=== PATIENT | female | born 1980 | race Caucasian/White ===

== ENCOUNTER → 2018-03-27 16:05 | Outpatient (CLI) | payer SELFPAY ==
[2018-03-27 20:33] LABS: Chlamydia Trachomatis by PCR Negative (Negative); Neisserai gonorrhoeae by PCR Negative (Negative); Probe Check PASS; Sample Adequacy Control PASS; Specimen Processing Control PASS
[2018-03-30 09:43] LABS: HPV Reflexed? NOT INDICATED
== END ==
PROVIDERS: Visit Provider Obstetrics & Gynecology
DX: Z34.81 Encounter for supervision of other normal pregnancy, first trimester (principal); Z12.4 Encounter for screening for malignant neoplasm of cervix; Z11.3 Encounter for screening for infections with a predominantly sexual mode of transmission
CPT/HCPCS: 87491; 87591; 88175; G0145

== ENCOUNTER → 2018-04-10 11:32 | Outpatient (CLI) | payer SELFPAY ==
[2018-04-10 13:56] LABS: Color, Urine Straw (Yellow); Glucose, Dipstick Normal (Normal); Ketone-Dipstick Negative (Negative); Leukocyte Esterase-Dipstick Negative /ul (Negative); Nitrite-Dipstick Negative (Negative); Occult Blood-Urine 10 /ul (Negative); Protein-Dipstick Negative (Negative); Specific Gravity, Urine 1.005 (1.002-1.030); Urine Bilirubin Dipstick Negative (Negative); Urine Clarity Sl. Cloudy (Clear); Urine Urobilinogen Normal (Normal)
[2018-04-10 15:46] LABS: Absolute Lymphocyte Count 1.65 X10^3/ul (0.83-4.51); Absolute Neutrophil Count 5.4 X10^3/uL (2.0-7.7); Basophil# 0.02 X10^3/uL; Basophil% 0.3 % (0-1); Eosinophil# 0.05 X10^3/uL; Eosinophils% 0.7 % (0-5); Hematocrit 37.6 % (37-47); Hemoglobin 12.3 g/dl (12.0-15.0); Lymphocyte # 1.65 X10^3/ul (4.0); Lymphocyte % 21.6 % (19-41); Mean Corp Hgb Conc 32.7 g/gl (32-36); Mean Corpuscular Hgb 32.6 pg (27.0-32.0); Mean Corpuscular Volume 99.7 fL (81-99); Mean Platelet Vol. 9.5 fl (6.2-12.0); Monocyte# 0.53 X10^3/uL; Monocyte% 6.9 % (0-10); Neutrophil # 5.37 X10^3/uL (2.7-7.7); Neutrophil % 70.2 % (47-70); Platelet Count 333 K/mm3 (150-450); RBC Distribution Width CV 12.9 % (11.6-14.6); RBC Distribution Width SD 46.1 fl (35.1-43.9); Red Blood Count 3.77 M/mm3 (4.2-5.4); White Blood Count 7.6 K/mm3 (4.4-11.0)
[2018-04-10 15:49] LABS: POSITIVE COUNT NO; POSITIVE DIFFERENTIAL NO; POSITIVE MORPHOLOGY NO
[2018-04-10 16:05] LABS: Thyroid Stim Hormone (TSH) 1.87 uIU/mL (0.358-3.74)
[2018-04-11 12:09] LABS: HIV - WCH Non-Reactive (Nonreactive); Rubella IgG 166.6 IU/mL
[2018-04-13 01:58] LABS: Prenatal RPR NONREACTIVE (NONREACTIVE)
[2018-04-13 11:32] LABS: HEPATITIS B SURFACE AG Negative (Negative); Hep C Antibodies <0.1 s/co ratio (0.0-0.9)
== END ==
LOC: WOBLAB 11:45
PROVIDERS: Visit Provider Obstetrics & Gynecology
DX: Z34.81 Encounter for supervision of other normal pregnancy, first trimester (principal)
CPT/HCPCS: 36415; 81002; 84443; 85025; 86703; 86762; 86803; 87340

== ENCOUNTER → 2018-07-30 10:18 | Outpatient (CLI) | payer MEDICAID, SELFPAY ==
[2018-07-30 11:10] LABS: Hematocrit 35.1 % (37-47); Hemoglobin 11.4 g/dl (12.0-15.0); Mean Corp Hgb Conc 32.5 g/gl (32-36); Mean Corpuscular Hgb 33.4 pg (27.0-32.0); Mean Corpuscular Volume 102.9 fL (81-99); Mean Platelet Vol. 9.2 fl (6.2-12.0); Platelet Count 286 K/mm3 (150-450); RBC Distribution Width CV 12.7 % (11.6-14.6); RBC Distribution Width SD 46.4 fl (35.1-43.9); Red Blood Count 3.41 M/mm3 (4.2-5.4); White Blood Count 8.6 K/mm3 (4.4-11.0)
[2018-07-30 11:12] LABS: Scan Indicated on CBC? Y/N NO
[2018-07-30 11:13] LABS: Glucose Challenge Gest 1H 50g 141 mg/dL (70-140)
== END ==
PROVIDERS: Visit Provider Obstetrics & Gynecology
DX: Z34.82 Encounter for supervision of other normal pregnancy, second trimester (principal)
CPT/HCPCS: 36415; 82950; 85027

== ENCOUNTER → 2018-08-06 06:54 | Outpatient (CLI) | payer MEDICAID, SELFPAY ==
[2018-08-06 08:51] LABS: Glucose GTT-Gestational 1 Hr 124 mg/dL (<190)
[2018-08-06 09:00] LABS: Glucose GTT-Gestation. Fasting 77 mg/dL (<105)
[2018-08-06 10:01] LABS: Glucose GTT-Gestational 2 Hr 130 mg/dL (<165)
[2018-08-06 11:04] LABS: Glucose GTT-Gestational 3 Hr 88 L (<145)
== END ==
PROVIDERS: Referring Provider Obstetrics & Gynecology; Visit Provider Obstetrics & Gynecology
DX: O24.912 Unspecified diabetes mellitus in pregnancy, second trimester (principal); Z3A.00 Weeks of gestation of pregnancy not specified
CPT/HCPCS: 36415; 82951; 82952

== ENCOUNTER → 2018-10-02 13:31 | Outpatient (CLI) | payer MEDICAID, SELFPAY | PROVIDERS: Visit Provider Obstetrics & Gynecology | DX: Z36.85 Encounter for antenatal screening for Streptococcus B (principal) | CPT/HCPCS: 87081 ==

== ENCOUNTER 2018-10-23 03:12 | Inpatient (IN) | payer MEDICAID, SELFPAY ==
[2018-10-23] MEDS: Oxytocin 30 units/NS 500 ml 30 UNITS/500 ML IV.SOLN 334 UNITS IV (03:43)
--- NOTE | 2018-10-23 03:53 | PCM.OPRPT ---
Vaginal Delivery Maternal Presentation: Active Labor, Spontaneous Rupture of Membranes Amniotic Membrane Rupture Type: Spontaneous at home Amniotic Fluid Description: Clear Final KAY: 10/25/18 Final KAY Source: US <20 weeks Gestational age: 39 Weeks and 5 Days Date of Procedure: 10/23/18 Pre-Operative Diagnosis: IUP Post-Operative Diagnosis: IUP Surgery/ Procedure Performed: Spontaneous Vaginal Delivery Type of Anesthesia: Local with 1% lidocaine Description of Procedure: Spontaneous vaginal delivery of a viable male with Apgars of 8/9 from an occiput anterior presentation with clear amniotic fluid and normal three-vessel placenta with the cord around the neck x2 loose. No episiotomy. Second-degree midline laceration repaired with 3-0 Rapide suture under local epidural. Sponges okay. Delivery physician: Gera Hamilton MD. Presentation: Vertex Placental Delivery Description: Spontaneous Placenta Disposition: [facility] Cord Vessel Description: 3 Vessels Cord Entanglement: Around neck x 2, loose Estimated Blood Loss: 250 cc Infant A gender: Male (1 minute): 8 (5 minute): 9 Episiotomy Description: None Laceration: Midline, 2nd degree Medications given after delivery: IV Pitocin Complications: None
[2018-10-23 03:55] VITALS: BMI 26.4
[2018-10-23 03:57] LABS: Absolute Neutrophil Count 9.1 X10^3/uL (2.0-7.7); Basophil# 0.04 X10^3/uL; Basophil% 0.3 % (0-1); Eosinophil# 0.08 X10^3/uL; Eosinophils% 0.6 % (0-5); Hematocrit 36.4 % (37-47); Hemoglobin 11.7 g/dl (12.0-15.0); Lymphocyte % 24.5 % (19-41); Mean Corp Hgb Conc 32.1 g/gl (32-36); Mean Corpuscular Hgb 31.2 pg (27.0-32.0); Mean Corpuscular Volume 97.1 fL (81-99); Mean Platelet Vol. 9.3 fl (6.2-12.0); Monocyte# 1.06 X10^3/uL; Monocyte% 7.6 % (0-10); Neutrophil # 9.07 X10^3/uL (2.7-7.7); Neutrophil % 65.5 % (47-70); Platelet Count 260 K/mm3 (150-450); RBC Distribution Width CV 13.6 % (11.6-14.6); RBC Distribution Width SD 46.5 fl (35.1-43.9); Red Blood Count 3.75 M/mm3 (4.2-5.4); White Blood Count 13.9 K/mm3 (4.4-11.0)
[2018-10-23 03:58] LABS: POSITIVE COUNT NO; POSITIVE DIFFERENTIAL NO; POSITIVE MORPHOLOGY NO
--- NOTE | 2018-10-23 03:58 | PCM.DCVAG ---
Discharge Diet: No Restrictions Discharge Activity: May Shower, May Take a Tub Bath May resume sexual activity in: 4-6 weeks Additional Activity Instructions:: Nothing in the vagina for 4-6 weeks. You may return to work/school in 6 weeks. Call your doctor if you observe: Fever of 101 or Higher, Inability to urinate, Inability to have a bowel movement, Using more than one pad per hour Additional Instructions: If you experience any of the following, contact your healthcare provider. Bleeding that soaks a pad every hour for 2 hours Unrelieved incision or abdominal pain Swelling, redness, discharge or bleeding from your incision or episiotomy site Your incision begins to separate Problems urinating (including inability to urinate or burning while urinating). Visual changes Severe headache Flu-like symptoms Pain or redness in one of both of your breasts Pain, warmth, tenderness or swelling in your legs, especially the calf area Frequent nausea and vomiting Symptoms of depression or anxiety If you experience any of the following, call 911 or go to the nearest Emergency Room. Chest pain Problems breathing Seizure activity Partial or complete paralysis of a body part, slurred speech, weakness or drooping of the face, or a sudden inability to walk or hold your balance Allergies/Adverse Reactions: Allergies No Known Allergies Allergy (Verified 10/23/18 03:53) Medications to take at Discharge Prenatabs FA 1 tab PO DAILY 10/23/18 Please Follow Up With: Florence Petty MD - [phone] When: Call to make an appointment with your doctor in 6 weeks. Primary Care Physician: Care Physician,No Primary [Primary Care Provider] - Test Results: Test results from this visit will be discussed in further detail at your follow-up appointment, if applicable.
--- NOTE | 2018-10-23 03:59 | DCINST_ITS ---
Discharge Diet: No Restrictions Discharge Activity: May Shower, May Take a Tub Bath May resume sexual activity in: 4-6 weeks Additional Activity Instructions:: Nothing in the vagina for 4-6 weeks. You may return to work/school in 6 weeks. Call your doctor if you observe: Fever of 101 or Higher, Inability to urinate, Inability to have a bowel movement, Using more than one pad per hour Additional Instructions: If you experience any of the following, contact your healthcare provider. * Bleeding that soaks a pad every hour for 2 hours * Unrelieved incision or abdominal pain * Swelling, redness, discharge or bleeding from your incision or episiotomy site * Your incision begins to separate * Problems urinating (including inability to urinate or burning while urinating). * Visual changes * Severe headache * Flu-like symptoms * Pain or redness in one of both of your breasts * Pain, warmth, tenderness or swelling in your legs, especially the calf area * Frequent nausea and vomiting * Symptoms of depression or anxiety If you experience any of the following, call 911 or go to the nearest Emergency Room. * Chest pain * Problems breathing * Seizure activity * Partial or complete paralysis of a body part, slurred speech, weakness or drooping of the face, or a sudden inability to walk or hold your balance Allergies/Adverse Reactions: Allergies No Known Allergies Allergy (Verified 10/23/18 03:53) Medications to take at Discharge Prenatabs FA 1 tab PO DAILY 10/23/18 Please Follow Up With: Florence Petty MD - [phone] When: Call to make an appointment with your doctor in 6 weeks. Primary Care Physician: Care Physician,No Primary [Primary Care Provider] - Test Results: Test results from this visit will be discussed in further detail at your follow- up appointment, if applicable.
[2018-10-23] MEDS: Oxytocin 30 units/NS 500 ml 30 UNITS/500 ML IV.SOLN 167 UNITS IV (04:13)
[2018-10-23 07:42] VITALS: BP 99/58; PULSE 96; RESP 16; TEMP 36.5
--- NOTE | 2018-10-23 07:52 | PN.OBGYN_ITS ---
Subjective: Day of delivery Doing well Relates very rapid labor after SROM at home. Got here 15 min prior to delivery. Baby boy. Nursing well. No concerns voiced - Physical Exam General: Alert, Oriented x3, Cooperative, No apparent distress HEENT: Atraumatic Neck: Supple Psych/Mental Status: Normal Affect Vital Signs Temp Pulse Resp BP 97.7 F L 96 16 99/58 L 10/23/18 07:42 10/23/18 07:42 10/23/18 07:42 10/23/18 07:42 Oxygen Delivery Method Room Air Weight: 63.503 kg Body Mass Index (BMI) 26.4 Intake and Output for Last 24 Hours 10/21/18 10/22/18 10/23/18 23:59 23:59 23:59 Intake Total 334 / 334 Output Total 900 / 900 Balance -566 / -566 Laboratory Tests Past 24 Hrs 10/23/18 10/23/18 10/23/18 03:20 03:20 03:40 WBC Cancelled 13.9 H Corrected WBC Cancelled RBC Cancelled 3.75 L Hgb Cancelled 11.7 L Hct Cancelled 36.4 L MCV Cancelled 97.1 MCH Cancelled 31.2 MCHC Cancelled 32.1 RDW Cancelled 13.6 RDW Differential Cancelled 46.5 H Plt Count Cancelled 260 MPV Cancelled 9.3 Immature Gran % (Auto) Cancelled 1.500 H Neut % (Auto) Cancelled 65.5 Lymph % (Auto) Cancelled 24.5 [place] % (Auto) Cancelled 7.6 Eos % (Auto) Cancelled 0.6 Baso % (Auto) Cancelled 0.3 Absolute Neuts (auto) Cancelled 9.1 H Absolute Lymphs (auto) Cancelled 3.40 Total Counted Cancelled Not Reportable Neutrophils % (Manual) Cancelled Band Neutrophils % Cancelled Lymphocytes % (Manual) Cancelled Monocytes % (Manual) Cancelled Eosinophils % (Manual) Cancelled Basophils % (Manual) Cancelled Metamyelocytes % Cancelled Myelocytes % Cancelled Promyelocytes % Cancelled Blast Cells % Cancelled Plasma Cell % (Manual) Cancelled Other Cells % Cancelled Nucleated RBCs/100 WBC Cancelled Differential Comment Cancelled Diff Path Review Cancelled Hypersegmented Neuts Cancelled Atypical Lymphocytes Cancelled Reactive Lymphocytes Cancelled Smudge Cells Cancelled Toxic Granulation Cancelled Dohle Bodies Cancelled Berto Rods Cancelled Platelet Estimate Cancelled Plt Morphology Comment Cancelled RBC Morphology Cancelled Polychromasia Cancelled Hypochromasia Cancelled Poikilocytosis Cancelled Basophilic Stippling Cancelled Anisocytosis Cancelled Microcytosis Cancelled Macrocytosis Cancelled Spherocytes Cancelled Sickle Cells Cancelled Target Cells Cancelled Tear Drop Cells Cancelled Ovalocytes Cancelled Stomatocytes Cancelled Lema-Widener Bodies Cancelled Hazel Cells Cancelled Bite Cells Cancelled Acanthocytes (Spur) Cancelled Rouleaux Cancelled Schistocytes Cancelled Blood Type Cancelled Antibody Screen Cancelled 10/23/18 03:40 WBC Corrected WBC RBC Hgb Hct MCV MCH MCHC RDW RDW Differential Plt Count MPV Immature Gran % (Auto) Neut % (Auto) Lymph % (Auto) [place] % (Auto) Eos % (Auto) Baso % (Auto) Absolute Neuts (auto) Absolute Lymphs (auto) Total Counted Neutrophils % (Manual) Band Neutrophils % Lymphocytes % (Manual) Monocytes % (Manual) Eosinophils % (Manual) Basophils % (Manual) Metamyelocytes % Myelocytes % Promyelocytes % Blast Cells % Plasma Cell % (Manual) Other Cells % Nucleated RBCs/100 WBC Differential Comment Diff Path Review Hypersegmented Neuts Atypical Lymphocytes Reactive Lymphocytes Smudge Cells Toxic Granulation Dohle Bodies Berto Rods Platelet Estimate Plt Morphology Comment RBC Morphology Polychromasia Hypochromasia Poikilocytosis Basophilic Stippling Anisocytosis Microcytosis Macrocytosis Spherocytes Sickle Cells Target Cells Tear Drop Cells Ovalocytes Stomatocytes Lema-Widener Bodies Hazel Cells Bite Cells Acanthocytes (Spur) Rouleaux Schistocytes Blood Type A POSITIVE Antibody Screen NEGATIVE Medical Necessity - Tobacco Use Smoking Status: Never smoker Assessment/Plan Day of delivery Precipitous labor. stable pp. Continue routine care.
[2018-10-23] MEDS: Ibuprofen 600 MG Tablet PO (09:16)
[2018-10-23 12:00] VITALS: BP 108/74; PULSE 88; RESP 16; TEMP 36.6
[2018-10-23 17:14] VITALS: BP 97/68; PULSE 90; RESP 18; TEMP 36
[2018-10-23 20:11] VITALS: BP 105/66; PULSE 89; RESP 16; TEMP 36.6; O2SAT 97
[2018-10-24 01:22] VITALS: BP 101/61; PULSE 86; RESP 16; TEMP 36.9; O2SAT 96
--- NOTE | 2018-10-24 07:44 | PCM.PN.OB ---
Subjective: PPD#1 precipitous labor Doing well Nursing and no concerns reported with this. Considering dischg home today if baby is released. Hearing screening still needed. - Physical Exam General: Alert, Oriented x3, Cooperative, No apparent distress HEENT: Atraumatic Neck: Supple Neurological: Cranial nerves II-XII grossly intact Psych/Mental Status: Normal Affect Vital Signs Temp Pulse Resp BP Pulse Ox 98.4 F 86 16 101/61 96 10/24/18 01:22 10/24/18 01:22 10/24/18 01:22 10/24/18 01:22 10/24/18 01:22 Oxygen Delivery Method Room Air Weight: 63.503 kg Body Mass Index (BMI) 26.4 Intake and Output for Last 24 Hours 10/22/18 10/23/18 10/24/18 23:59 23:59 23:59 Intake Total 334 / 334 Output Total 900 / 900 Balance -566 / -566 Medical Necessity - Tobacco Use Smoking Status: Never smoker Assessment/Plan PPD#1 precipitous labor. GBS neg. Plans to go home later today if baby is relased. RTO in 6 wk for follow up appt, prn sooner.
[2018-10-24 08:25] VITALS: BP 99/63; PULSE 78; RESP 14; TEMP 36.1
[2018-10-24 11:42] VITALS: TEMP 36.5
--- NOTE | 2018-10-24 12:29 | NURSING ---
1220- patient placed in car seat, patient to W/C. placed on mothers lap. Patient and To private car via W/C in stable condition Accompanied by .
--- NOTE | 2018-10-24 15:33 | CASEMGMT ---
Social Work Labor and Delivery Unit Date of Referral/Notification: 10/23/2018 Time of Referral: 45 Referred By: Dr. Hamilton Reason for Referral: maternal history of depression with first Date of Intervention: 10/24/2018 Time of Intervention: 1105 Informant: Medical record, mother of baby (MOB) Iliana Hutchinson, and father of baby (FOB) History: MOB is 38 year old female, to FOB Martinez Hutchinson age 37. MOB is G3, P2 to 3 after delivering baby boy Calvin Hutchinson. Older children at home are Sylwia age 9 and Anayeli age 6. MOB with care starting at 11 weeks gestation, arrived to [facility] and delivered precipitously. Record indicates previous deliveries also quick. MOB and FOB currently in [facility], but MOB is from this area and delivered other children at [facility]. MOB is reported to have had depression after first child was born, which lasted a year. Record indicates MOB sought counseling and was involved in this, has been supportive during this . No history of medications. No identified thoughts of suicide. MOB does have an 8th grade education, and FOB a high school diploma. Both are able to read and write. 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 No identified or reported history of substance use or abuse issues for parents. Chart indicates MOB answered no to any domestic violence issues with . No indications during assessment of any safety concerns. Assessment: MOB and FOB both engaged with social worker psychiatric, friendly, non-defensive, and respectful to one anther. MOB reports the depression was during the first , none reported for the last . Talked with MOB and FOB regarding risk factors for depression and anxiety, importance allowing others to help. MOB reports belief that one of the most important things is to acknowledge feelings in order to get help. MOB reports it has been hard to accept help from others, but is working on this and getting better. FOB provided supportive comments during this part of conversation. Validated to MOB and FOB that depression and anxiety can happen to anyone, and that all people deserve support. MOB and FOB report to have good support system from family and friends. FOB will be home for at least a week to help with transition home. Observed both MOB and FOB to handle baby. MOB feeding baby at breast, gentle with baby, rubbed baby?s head and enfolded baby, showing appropriate bonding cues. Observed FOB also handle baby gently, was patient with baby when baby was crying, talked to baby in a gentle and loving tone. No concerns voiced by nursing staff regarding mother/child bonding or interactions. MOB and FOB receptive to having information on mood and anxiety disorders, as well as a community resource list for [facility]. At this time family not interested in WIC nor [facility], but did take information. Plan: MOB and baby to home with to be at home to help for the next week. Community resources information given as well as information on mood and anxiety disorders for home going. No further needs requested or indicated. -GLORIA Leiva, DEPUTY DIRECTOR
== END 2018-10-24 12:25 | disposition home or self-care (01) | DRG 560 ==
PROVIDERS: Admitting Provider Obstetrics & Gynecology; Visit Provider Obstetrics & Gynecology
DX: O42.02 Full-term premature rupture of membranes, onset of labor within 24 hours of rupture (principal); O62.3 Precipitate labor; O69.81X0 Labor and delivery complicated by cord around neck, without compression, not applicable or unspecified; O70.1 Second degree perineal laceration during delivery; Z87.59 Personal history of other complications of pregnancy, childbirth and the puerperium; Z3A.39 39 weeks gestation of pregnancy; Z37.0 Single live birth
CPT/HCPCS: 59025; 59050; 85025; 86850; 86900; 99218; G0378